=== PATIENT | female | born 1970 | race Caucasian/White ===

== ENCOUNTER → 2021-03-25 | Outpatient (REF) | payer BC | LOC: M LAB REF 12:49 | PROVIDERS: ATTEND Internal Medicine Pulmonary Disease | DX: J47.9 Bronchiectasis, uncomplicated (principal); J45.40 Moderate persistent asthma, uncomplicated; J44.9 Chronic obstructive pulmonary disease, unspecified ==

== ENCOUNTER → 2021-06-09 | Outpatient (CLI) | payer BC | LOC: M SLEEP 20:00 | PROVIDERS: ATTEND Internal Medicine Pulmonary Disease | DX: G47.33 Obstructive sleep apnea (adult) (pediatric) (principal) ==

== ENCOUNTER → 2021-09-28 | Outpatient (CLI) | payer BC | LOC: M SLEEP 20:00 | PROVIDERS: ATTEND Internal Medicine Pulmonary Disease | DX: G47.33 Obstructive sleep apnea (adult) (pediatric) (principal) ==

== ENCOUNTER → 2024-09-12 | Outpatient (REF) | payer BC | LOC: M LAB REF 12:34 | PROVIDERS: ATTEND Internal Medicine Pulmonary Disease | DX: J47.9 Bronchiectasis, uncomplicated (principal); J45.40 Moderate persistent asthma, uncomplicated ==